=== PATIENT | female | born 1960 | race Caucasian/White ===

== ENCOUNTER 2019-11-27 | Emergency (ER) | payer SELFPAY ==
[~2019-11-27] MED LIST: CIPRO500 MG OR; CIPROFLOXACN500 MG PO; ULTRAM50 MG OR; VENTOLIN HFA IN; ZITHROMAX500 MG PO
[2019-11-27 22:47] LABS: HEMATOCRIT 34.4 % (37.0-47.0); HEMOGLOBIN 11.9 g/dl (12.0-16.0); IMMATURE GRANULOCYTES 0.5 % (0.0-5.0); MEAN CORPUSCULAR HGB 34.6 pG CALC (26.0-32.0); MEAN CORPUSCULAR HGB CONC 34.6 g/L CALC (32.0-36.0); NEUT# 3.87 thou/uL (2.00-7.15); RED BLOOD COUNT 3.44 mill/uL (4.20-5.60); RED CELL DISTRI WIDTH 11.7 % (11.5-15.5)
[2019-11-27 23:09] LABS: ALBUMIN 4.2 g/dL (3.2-5.0); ALKALINE PHOSPHATASE 48 u/l (38-126); ANION GAP 13 (6-22 (CALC)); BUN 9 mg/dL (7-17); BUN/CREATININE RATIO 14 (12-20 (CALC)); CARBON DIOXIDE 27 mmol/l (22-30); CHLORIDE 95 mmol/l (95-108); CREATININE 0.7 mg/dL (0.5-1.0); GFR > 60 ML/MIN (>=60 (CALC)); GFR FOR AFR.AMER. > 60 ML/MIN (>=60 (CALC)); POTASSIUM 4.6 mmol/l (3.5-5.1); SGOT/AST 24 u/l (14-36); SODIUM 131 mmol/l (137-146); TOTAL PROTEIN 7.1 g/dL (6.3-8.2)
[2019-11-27 23:10] LABS: ACT PARTIAL THROMBO TIME 25.9 SECONDS (20.0-32.5); INTERNATIONAL NORMALIZED RATIO 0.9 RATIO (0.7-1.3); PROTHROMBIN TIME 9.6 SECONDS (9.0-12.5)
[2019-11-27 23:13] LABS: BILIRUBIN, TOTAL 0.3 mg/dL (0.0-1.4)
[2019-11-27 23:25] LABS: URINE BILIRUBIN - DIPSTICK NEGATIVE (NEGATIVE); URINE BLOOD DIPSTICK NEGATIVE (NEGATIVE); URINE COLOR YELLOW; URINE GLUCOSE - DIPSTICK NEGATIVE (NEGATIVE); URINE KETONE NEGATIVE (NEGATIVE); URINE LEUK ESTERASE NEGATIVE (NEGATIVE); URINE NITRITE - DIPSTICK NEGATIVE (Negative); URINE PH 5.5 (4.5-8.0); URINE PROTEIN - DIPSTICK NEGATIVE (NEG-TRACE); URINE SPECIFIC GRAVITY <=1.005; URINE UROBILINOGEN - DIPSTICK 0.2 E.U./dL (0.2)
[2019-11-27] MEDS ORDERED: ORPHENADRINE100 MG PO (23:38)
[2019-11-27] MEDS ORDERED: IBUPROFEN600 MG PO (23:38)
== END 2019-11-27 23:45 | disposition home or self-care (01) | DRG 552 ==
PROVIDERS: Emergency Medicine
DX: M54.2 Cervicalgia (principal); S50.12XA Contusion of left forearm, initial encounter; X58.XXXA Exposure to other specified factors, initial encounter; F17.210 Nicotine dependence, cigarettes, uncomplicated

== ENCOUNTER 2022-06-21 04:47 | Emergency (ER) | payer SELFPAY ==
[~2022-06-21] VITALS: Ht 160 cm; Wt 68.0 kg
[~2022-06-21 04:47] MED LIST changes: +IBUPROFEN600 MG PO; +ORPHENADRINE100 MG PO
[2022-06-21 05:43] VITALS: BP 116/76
== END 2022-06-21 05:42 | disposition left against medical advice (07) | DRG 814 ==
LOC: ED 04:47
DX: R59.0 Localized enlarged lymph nodes (principal); U07.1 COVID-19; J44.9 Chronic obstructive pulmonary disease, unspecified; F17.210 Nicotine dependence, cigarettes, uncomplicated; Z91.19 Patient's noncompliance with other medical treatment and regimen

== ENCOUNTER 2023-04-09 16:30 | Emergency (ER) | payer SELFPAY ==
[~2023-04-09] VITALS: Ht 160 cm; Wt 130.0 kg
[2023-04-09 18:01] VITALS: BP 125/82
[2023-04-09] MEDS ORDERED: NAPROXEN500 MG PO (18:03)
== END 2023-04-09 18:08 | disposition home or self-care (01) | DRG 563 ==
LOC: ED 16:30
DX: S63.91XA Sprain of unspecified part of right wrist and hand, initial encounter (principal); J44.9 Chronic obstructive pulmonary disease, unspecified; F17.200 Nicotine dependence, unspecified, uncomplicated; W19.XXXA Unspecified fall, initial encounter